=== PATIENT | male | born 1995 | race Two or more races ===

== ENCOUNTER → 2018-08-19 | Outpatient (CLI) | payer OTHER ==
--- NOTE | 2018-08-19 16:05 | KCIC ---
MR of the right ankle Indication: Right ankle pain, missed a step and rolled ankle. Injury in early July. Pain lateral. Comparison: None are available Technique: Standard multiplanar sequences are obtained. FINDINGS: Artifact: No significant image degradation. Lateral: Peroneal tendons: Intact, no dislocation Lateral collateral ligaments: * Anterior talofibular ligament: Thick and poorly defined, without much acute edema. * Calcaneofibular ligament: Mildly thickened and ill-defined. * Posterior talofibular ligament: Intact Tibiofibular syndesmosis: Anterior inferior tibiofibular ligament is intact. Tibiofibular syndesmosis is intact. Medial: Posterior tibial tendon: Mild thickening of the posterior tibial tendon at the level of the medial malleolus, compatible with mild chronic tendinosis. No acute tear. Flexor digitorum longus and hallucis tendons: Intact Medial ligaments: No evidence of acute deltoid ligament tear Anterior: Anterior tibial tendon: Intact Extensor hallucis longus tendon: Intact Extensor digitorum longus tendon: Intact Posterior: Achilles tendon: Intact Plantar aponeurosis: No acute plantar fasciitis Subtalar joints: Patent Tarsal sinus: Intact Talar Dome: Intact Bones: No significant lesion or acute fracture Fluid: Trace tibiotalar joint fluid. Joints: No advanced DJD. Soft tissues: Unremarkable Impression: 1. Mild chronic posterior tibial tendinosis. 2. Sprain/scarring of the anterior talofibular and calcaneofibular ligaments, likely subacute or chronic. Electronically signed by: Eldon Zamorano MD (08/19/2018 4:02 PM) [id number]
== END | disposition home or self-care (01) ==
LOC: KCIC MRI 14:03
PROVIDERS: ATTEND Family Medicine
DX: S93.01XD Subluxation of right ankle joint, subsequent encounter (principal); M76.821 Posterior tibial tendinitis, right leg; X58.XXXD Exposure to other specified factors, subsequent encounter
CPT/HCPCS: 73721